=== PATIENT | female | born 1960 | race Caucasian/White ===

== ENCOUNTER → 2025-02-16 14:08 | Outpatient (REF) | payer OTHER, SELFPAY | LOC: WDC 14:08 | PROVIDERS: ATTENDING PHYSICIAN Emergency Medicine | DX: Z00.00 Encounter for general adult medical examination without abnormal findings (principal); Z82.62 Family history of osteoporosis; Z12.31 Encounter for screening mammogram for malignant neoplasm of breast | CPT/HCPCS: 77063; 77067 ==